=== PATIENT | male | born 1975 | race Caucasian/White ===

== ENCOUNTER 2022-11-09 07:15 | Emergency (ER) | payer MEDICAID ==
[2022-11-09 07:27] VITALS: BP 136/68
[2022-11-09] MEDS ORDERED: predniSONE 20 MG TABLET PO STA (07:46)
--- NOTE | 2022-11-09 07:49 | ED Physician Documentation ---
PD HPI SKIN - Stated complaint Stated Complaint: RASH/ITCHY HANDS - Chief complaint Chief Complaint: Allergic Rx - History obtained from History obtained from: Patient - History of Present Illness Timing - onset: How many weeks ago (1) Timing - duration: Weeks (1) Timing - details: Gradual onset, Still present, Waxing and waning Location: [place] Quality / character: Itchy, Raised Improved by: Benadryl, Oral steroids Associated symptoms: Headache (similar to always). 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 He has had an outbreak over the past week and he does not have any medications that he typically would use to treat this. He usually takes some prednisone for about 3 days to clear this up. He is also taking some hydroxyzine and he is out of this medication as well. The patient is moved to [facility] about 6 months ago and plans to stay. He has previously been attended to by a rack room worker who made the diagnosis clinically. The patient is unaware of any specific triggers. He did usually gets a headache with this and has his typical headache. Review of Systems Constitutional: denies: Fever Eyes: denies: Decreased vision Ears: denies: Ear pain Nose: denies: Congestion Throat: denies: Sore throat Cardiac: denies: Chest pain / pressure, Palpitations Respiratory: denies: Dyspnea, Cough GI: denies: Abdominal Pain, Nausea, Vomiting, Diarrhea : denies: Dysuria, Frequency Skin: reports: Rash Musculoskeletal: denies: Neck pain, Back pain, Extremity pain Neurologic: reports: Headache. denies: Generalized weakness, Focal weakness, Numbness, Head injury, LOC PD PAST MEDICAL HISTORY - Past Medical History Past Medical History: Yes Cardiovascular: None Respiratory: None Neuro: None Endocrine/Autoimmune: None GI: None : None HEENT: None Psych: Depression Musculoskeletal: Osteoarthritis Derm: Other - Past Surgical History Past Surgical History: Yes Ortho: Other - Present Medications Home Medications: Ambulatory Orders Medication Instructions Recorded Confirmed Bupropion HCl [Wellbutrin Xl] 300 mg PO DAILY 11/09/22 11/09/22 hydrOXYzine pamoate [Hydroxyzine 25 - 50 mg PO Q6HR PRN #30 cap 11/09/22 Pamoate] predniSONE [Deltasone] 40 mg PO DAILY #20 tablet 11/09/22 - Allergies Allergies/Adverse Reactions: Allergies Allergy/AdvReac Type Severity Reaction Status Date / Time doxycycline Allergy Unknown Verified 11/09/22 07:23 Penicillins Allergy Unknown Verified 11/09/22 07:23 promethazine Allergy Nausea Verified 11/09/22 07:23 - Social History Does the pt smoke?: Yes Smoking Status: Current every day smoker Does the pt drink ETOH?: Yes Does the pt have substance abuse?: Yes Substance Use and Type: Marijuana - Immunizations Immunizations are current?: Yes PD ED PE NORMAL - Vitals Vital signs reviewed: Yes (Hypertensive mild) - General General: Alert and oriented X 3, No acute distress, Well developed/nourished - HEENT HEENT: Atraumatic, PERRL, EOMI - Neck Neck: Supple, no meningeal sign, No bony TTP - Respiratory Respiratory: No respiratory distress - Derm Derm: Normal color, Warm and dry, Other (Urticarial rash over the abdomen forearms.) - Extremities Extremities: No deformity, No edema - Neuro Neuro: Alert and oriented X 3, plush cutter 2-12 intact, No motor deficit, No sensory deficit, Normal speech Eye Opening: Spontaneous Motor: Obeys Commands Verbal: Oriented GCS Score: 15 - Psych Psych: Normal mood, Normal affect Results - Vitals Vitals: Vital Signs - 24 hr 11/09/22 07:24 Temperature 37.1 C Heart Rate 83 Respiratory 18 Rate Blood Pressure 136/68 H O2 Saturation 99 Oxygen O2 Source Room air PD Medical Decision Making - ED course Complexity details: considered differential, d/w patient ED course: 46-year-old male presents to the emergency department with a medical problem he has had previously. He is having an exacerbation of urticarial vasculitis. He has had previous successful treatment with prednisone and hydroxyzine and is requesting same. I found no specifics on review of system and no specific work- up is indicated. I will [place] the patient [place] and provide treatment today. We will E scribe prednisone and hydroxyzine. Departure - Departure Disposition: Home, Self Care Clinical Impression: Urticarial vasculitis Condition: Stable Instructions: ED Urticaria Follow-Up: Gris Ybarra ARNP [Credentialed Staff Provider] - Prescriptions: hydrOXYzine pamoate [Hydroxyzine Pamoate] 25 - 50 mg PO Q6HR PRN #30 cap PRN Reason: hives predniSONE [Deltasone] 40 mg PO DAILY #20 tablet Comments: Mando, today it looks like you have another outbreak of your urticarial vasculitis. We are expecting this to behave as it usually has. I have E scribed some prednisone and hydroxyzine to the [facility] in [place]. My recommendation is that after this has cleared up if you have an outbreak again try to correlate this with something you have had to eat within the last 24 hours.
== END 2022-11-09 08:21 | disposition home or self-care (01) ==
LOC: ED 07:15
DX: L95.8 Other vasculitis limited to the skin (principal); F17.200 Nicotine dependence, unspecified, uncomplicated
CPT/HCPCS: 99282; 99283; J7512

== ENCOUNTER 2023-01-28 07:27 | Emergency (ER) | payer MEDICAID, OTHER ==
[2023-01-28 07:46] VITALS: BP 123/63
[2023-01-28] MEDS ORDERED: DEXAMETHASONE 10 MG/ML VIAL IM STA (08:10)
[2023-01-28] MEDS ORDERED: hydrOXYzine PAMOATE 25 MG CAPSULE PO STA (08:10)
--- NOTE | 2023-01-28 08:13 | ED Physician Documentation ---
History of Present Illness - Stated complaint Stated Complaint: RASH - Chief complaint Chief Complaint: General - History obtained from History obtained from: Patient - Additonal information Additional information: The patient comes to the emergency department chief complaint of urticaria. He has a longstanding history of episodic urticarial vasculitis and states that he gets an episode every several months. He was last seen here in October for this. He is still trying to get established with primary care of the [place] and does not have a regular doctor. He is mainly here for symptomatic treatment of his urticaria. He denies being exposed to anything he is known to be allergic to. The urticaria are on his torso exclusively though he does have some itching on his palms and his palms seem a little swollen. He denies any swelling of his oropharyngeal structures or his face. No itching in his throat. He states the symptoms are very much consistent with what he has had before. He states that normally after few days of prednisone and hydroxyzine, the symptoms completely resolve. No other complaints at this time. PD PAST MEDICAL HISTORY - Past Medical History Past Medical History: Yes Cardiovascular: None Respiratory: None Neuro: None Endocrine/Autoimmune: None GI: None : None HEENT: None Psych: Depression Musculoskeletal: Osteoarthritis Derm: Other Other Past Medical History: uticarial vasculitis - Past Surgical History Past Surgical History: Yes Ortho: Other - Present Medications Home Medications: Ambulatory Orders Medication Instructions Recorded Confirmed buPROPion HCL [Wellbutrin Xl] 300 mg PO DAILY 11/09/22 01/28/23 hydrOXYzine HCL [Hydroxyzine HCl] 25 - 50 mg PO Q6H PRN #30 tablet 01/28/23 predniSONE [Deltasone] 60 mg PO DAILY 5 Days #15 tablet 01/28/23 - Allergies Allergies/Adverse Reactions: Allergies Allergy/AdvReac Type Severity Reaction Status Date / Time doxycycline Allergy Unknown Verified 01/28/23 07:56 Penicillins Allergy Unknown Verified 01/28/23 07:56 promethazine Allergy Nausea Verified 01/28/23 07:56 - Social History Does the pt smoke?: Yes Smoking Status: Current every day smoker Does the pt drink ETOH?: Yes Does the pt have substance abuse?: Yes - Immunizations Immunizations are current?: Yes PD ED PE NORMAL - Vitals Vital signs reviewed: Yes - General General: Alert and oriented X 3, No acute distress, Well developed/nourished - HEENT HEENT: Atraumatic, PERRL, EOMI, Moist mucous membranes - Neck Neck: Supple, no meningeal sign - Respiratory Respiratory: No respiratory distress - Derm Derm: Warm and dry, Other (Moderate urticarial rash across the patient's abdomen.) - Extremities Extremities: No deformity - Neuro Neuro: Alert and oriented X 3 - Psych Psych: Normal mood, Normal affect Results - Vitals Vitals: Vital Signs - 24 hr 01/28/23 07:41 Temperature 36.6 C Heart Rate 62 Respiratory 16 Rate Blood Pressure 123/63 O2 Saturation 98 Oxygen O2 Source Room air PD Medical Decision Making - ED course Complexity details: considered differential, d/w patient ED course: The patient was given doses of Decadron and hydroxyzine in the emergency department and prescriptions were sent for the same to the pharmacy of the patient's choice. We have discussed the importance of getting established with primary care, as the patient was counseled to do the same thing last time he was here and 3 months later, has not made any progress in this regard. The patient states he is getting on state insurance now so that he can get established with outpatient care. We discussed the usual indications for return. Departure - Departure Disposition: 01 Home, Self Care Clinical Impression: Urticaria Condition: Stable Instructions: ED Urticaria Prescriptions: predniSONE [Deltasone] 60 mg PO DAILY 5 Days #15 tablet hydrOXYzine HCL [Hydroxyzine HCl] 25 - 50 mg PO Q6H PRN #30 tablet PRN Reason: Itching Comments: Your prescriptions have been electronically transmitted to the [facility] in [place]. It is very important that you get established with primary care so that you can have basic health care. Please follow-up as soon as you can to get established.
== END 2023-01-28 08:21 | disposition home or self-care (01) ==
LOC: ED 07:27
DX: L50.9 Urticaria, unspecified (principal); F17.200 Nicotine dependence, unspecified, uncomplicated
CPT/HCPCS: 96372; 99283; A9270

== ENCOUNTER 2023-06-05 16:30 | Emergency (ER) | payer MEDICAID ==
[2023-06-05 16:55] VITALS: BP 117/70; O2SAT 97
[2023-06-05] MEDS ORDERED: HYDROcod/ACET 5/325 Prepack 4 PO STA (16:55)
[2023-06-05] MEDS ORDERED: hydrOXYzine PAMOATE 25 MG CAPSULE PO STA (16:55)
[2023-06-05] MEDS ORDERED: predniSONE 20 MG TABLET PO STA (16:55)
--- NOTE | 2023-06-05 16:57 | ED Physician Documentation ---
History of Present Illness - Stated complaint Stated Complaint: BILAT FEET SWELLING - Chief complaint Chief Complaint: General - History obtained from History obtained from: Patient - Additonal information Additional information: 47-year-old gentleman with longstanding history of urticarial vasculitis. He gets flares now and again and when he does steroids are helpful. 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 No fevers or chills. PD PAST MEDICAL HISTORY - Past Medical History Cardiovascular: None Respiratory: None Neuro: None Endocrine/Autoimmune: None GI: None : None HEENT: None Psych: Depression Musculoskeletal: Osteoarthritis Derm: Other - Past Surgical History Past Surgical History: Yes Ortho: Other - Present Medications Home Medications: Ambulatory Orders Medication Instructions Recorded Confirmed buPROPion HCL [Wellbutrin Xl] 300 mg PO DAILY 11/09/22 01/28/23 hydrOXYzine HCL [Hydroxyzine HCl] 25 - 50 mg PO Q6H PRN #30 tablet 01/28/23 predniSONE [Deltasone] 60 mg PO DAILY 5 Days #15 tablet 01/28/23 HYDROcod/ACETAM 5/325 [[place] 5/325] 1 - 2 tab PO Q6H PRN #10 tablet 06/05/23 hydrOXYzine PAMOATE [Vistaril] 25 mg PO Q6H PRN #15 cap 06/05/23 predniSONE [Deltasone] 20 mg PO [id number] #21 tab 06/05/23 - Allergies Allergies/Adverse Reactions: Allergies Allergy/AdvReac Type Severity Reaction Status Date / Time doxycycline Allergy Unknown Verified 01/28/23 07:56 Penicillins Allergy Unknown Verified 01/28/23 07:56 promethazine Allergy Nausea Verified 01/28/23 07:56 - Social History Does the pt smoke?: Yes Smoking Status: Current every day smoker Does the pt drink ETOH?: Yes Does the pt have substance abuse?: Yes - Immunizations Immunizations are current?: Yes PD ED PE NORMAL - Vitals Vital signs reviewed: Yes - General General: Alert and oriented X 3, No acute distress - Derm Derm: Normal color, Warm and dry - Extremities Extremities: Other (Vasculitic/urticarial rash on both feet and ankles. No cellulitis. Painless range of motion of all joints of the foot and ankles.) - Neuro Neuro: Alert and oriented X 3, Normal speech Results - Vitals Vitals: Vital Signs - 24 hr 06/05/23 16:42 Temperature 36.7 C Heart Rate 84 Respiratory 18 Rate Blood Pressure 117/70 O2 Saturation 97 Oxygen O2 Source Room air Departure - Departure Disposition: 01 Home, Self Care Clinical Impression: Urticarial vasculitis Condition: Good Record reviewed to determine appropriate education?: Yes Prescriptions: predniSONE [Deltasone] 20 mg PO [id number] #21 tab HYDROcod/ACETAM 5/325 [[place] 5/325] 1 - 2 tab PO Q6H PRN #10 tablet PRN Reason: Pain hydrOXYzine PAMOATE [Vistaril] 25 mg PO Q6H PRN #15 cap PRN Reason: Itching Comments: I sent your prescriptions electronically to the [facility] in [place]. Return for new or worsening symptoms. Follow-up with the specialist as you are planning. I am prescribing a short course of narcotic pain medication for you. These are potentially dangerous and addictive medications that should be used carefully. These medications may constipate you. Take an [id number] stool softener (docusate) twice daily with plenty of water while taking these medications. If you go 24 hours without a bowel movement, take [id number] miralax, per package instructions. Do not drink or drive while taking these medications. If you received narcotic or sedating medications while in the emergency department, do not drive for 24 hours. Store this medication in a safe, secure place and out of reach of children. It is a violation of federal law to give or sell this medication to another person or to use in a manner other than prescribed. The ED will not refill narcotic prescriptions, including prescriptions lost or stolen. To dispose of unwanted medications: 1. [facility] provides a drop box for medication in pill form only (no liquids) 8:00 am to 4:30 p.m. Tuesday-Tuesday in the lobby of the [facility], [address] [place] [address]. Empty pills into ziplock bag before disposal. Call [phone] for information. 2.[employer] is a free service available to all [facility] residents. Go to [email or web address] Note that many narcotic pain relievers also contain Tylenol/acetaminophen. Please ensure that your total dose of acetaminophen from all sources does not exceed 3 g (3000 mg) per day.
--- OUTSIDE RECORDS SUMMARY | 2023-06-05 17:28 | EXTERNAL MEDICAL SUMMARY RPT | Continuity of Care Document ---
Author Name Unknown Address [address] [place] [address] Phone Organization [facility] Address [address] [place] [address] Phone Care Team Providers Care External Grinder Tool Name Role Phone Unavailable Unavailable Unavailable Rhonda Feldman Pa-C Unavailable Unavailable Allergies and Intolerances date description facility reaction severity Medications date description facility 2023-03-28 00:00 prednisone [facility] [place] 2023-03-29 00:00 prednisone [facility] [place] 2023-03-28 00:00 hydroxyzine hcl [facility] [place] 2023-03-29 00:00 hydroxyzine hcl [facility] [place] 2023-03-28 00:00 bupropion hcl [facility] [place] 2023-03-29 00:00 bupropion hcl [facility] [place] 2023-03-28 00:00 hydroxyzine hcl [facility] [place] 2023-03-29 00:00 hydroxyzine hcl [facility] [place] 2023-03-28 00:00 prednisone [facility] [place] 2023-03-29 00:00 prednisone [facility] [place] 2023-03-28 00:00 prednisone [facility] [place] 2023-03-29 00:00 prednisone [facility] [place] 2023-03-28 00:00 prednisone [facility] [place] 2023-03-29 00:00 prednisone [facility] [place] 2023-03-28 00:00 hydroxyzine hcl [facility] [place] 2023-03-29 00:00 hydroxyzine hcl [facility] [place] 2023-03-28 00:00 bupropion hcl [facility] [place] 2023-03-29 00:00 bupropion hcl [facility] [place] 2023-03-28 00:00 bupropion hcl [facility] [place] 2023-03-29 00:00 bupropion hcl [facility] [place] 2023-03-28 00:00 bupropion hcl [facility] [place] 2023-03-29 00:00 bupropion hcl [facility] [place] 2023-03-28 00:00 hydroxyzine hcl [facility] [place] 2023-03-29 00:00 hydroxyzine hcl [facility] [place] Problems date description facility 2023-03-28 00:00 Hypocomplementemic u rticarial vasculitis [facility] [place] 2023-03-28 00:00 Arteritis, unspecified [facility] [place] 2023-03-28 00:00 Generalized anxiety disorder [facility] [place] 2023-03-28 00:00 Other specified necr otizing vasculopathies [facility] [place] Procedures date description facility 2023-03-28 00:00 Visit Code Hold [facility] [place] Social History date description facility 2023-03-28 00:00 Current every day smoker [facility] [place] Vital Signs date measurement value units 2023-03-28 00:00 BMI 31.38 kg/m2 2023-03-28 00:00 BP_diastolic 65 mmHg 2023-03-28 00:00 BP_systolic 115 mmHg 2023-03-28 00:00 heart_rate 67 /min 2023-03-28 00:00 height_metric 185.42 cm 2023-03-28 00:00 height_standard 73 in 2023-03-28 00:00 respiration_rate 16 /min 2023-03-28 00:00 temperature_metric 36.11 C 2023-03-28 00:00 temperature_standard 97 F 2023-03-28 00:00 weight_metric 107.5 kg 2023-03-28 00:00 weight_standard 237 lb
== END 2023-06-05 17:29 | disposition home or self-care (01) ==
LOC: ED 16:30
DX: I77.6 Arteritis, unspecified (principal); F17.200 Nicotine dependence, unspecified, uncomplicated
CPT/HCPCS: 99282; 99283; A9270; J7512

== ENCOUNTER 2023-08-30 17:48 | Emergency (ER) | payer MEDICAID ==
[2023-08-30 18:19] VITALS: BP 134/70; O2SAT 97
--- NOTE | 2023-08-30 19:34 | ED Physician Documentation ---
History of Present Illness - Stated complaint Stated Complaint: HIVES - Chief complaint Chief Complaint: Allergic Rx - Additonal information Additional information: 47-year-old male presents emergency department for evaluation of generalized hives that began 2 days ago. He does have a history of recurrent hives. He also has a history of joint inflammation. He has previously been worked up for RA but was negative. His PCP has referred him to a grant officer but the patient has not yet completed the process of making the appointment. Patient states he has been too busy because of his job. Seen last for similar in mid June and received a prescription for Decadron, tizanidine and cetirizine which she found helpful. When this episode of hives began 2 days ago he had taken 1 leftover Decadron but it has not resolved the hives. He has tried Benadryl and cetirizine. Denies chest pain, shortness of air, tongue or lip swelling. Review of Systems Eyes: reports: Reviewed and negative Ears: reports: Reviewed and negative Cardiac: denies: Chest pain / pressure Respiratory: denies: Dyspnea Skin: reports: Rash PD PAST MEDICAL HISTORY - Past Medical History Past Medical History: No Cardiovascular: None Respiratory: None Neuro: None Endocrine/Autoimmune: None GI: None : None HEENT: None Psych: Depression Musculoskeletal: Osteoarthritis Derm: Other - Past Surgical History Past Surgical History: Yes Ortho: Other - Present Medications Home Medications: Ambulatory Orders Medication Instructions Recorded Confirmed buPROPion HCL [Wellbutrin Xl] 150 mg PO DAILY 11/09/22 08/30/23 hydrOXYzine PAMOATE [Vistaril] 25 mg PO Q6H PRN #15 cap 06/05/23 08/30/23 Cetirizine [ZyrTEC] 10 mg PO DAILY #30 tablet 07/05/23 08/30/23 Guanfacine HCl [Intuniv] 1 mg PO HS 07/05/23 08/30/23 Cetirizine [ZyrTEC] 10 mg PO DAILY #30 tablet 08/30/23 Lisdexamfetamine Dimesylate 10 mg PO DAILY 08/30/23 08/30/23 dexAMETHasone [Decadron] 4 mg PO DAILY 8 Days #8 tablet 08/30/23 tiZANidine [Zanaflex] 4 mg PO Q8H PRN #20 tablet 08/30/23 - Allergies Allergies/Adverse Reactions: Allergies Allergy/AdvReac Type Severity Reaction Status Date / Time doxycycline Allergy Unknown Verified 08/30/23 18:09 Penicillins Allergy Unknown Verified 08/30/23 18:09 promethazine Allergy Nausea Verified 08/30/23 18:09 - Social History Does the pt smoke?: No Smoking Status: Never smoker Does the pt drink ETOH?: Yes Does the pt have substance abuse?: Yes Substance Use and Type: Marijuana - Immunizations Immunizations are current?: Yes PD ED PE NORMAL - General General: Alert and oriented X 3, No acute distress - HEENT HEENT: Atraumatic - Derm Derm: Other (Raised red urticaria on his abdomen, torso and forearms. No purpura or petechiae.) Results - Vitals Vitals: Vital Signs - 24 hr 08/30/23 18:09 Temperature 37.3 C Heart Rate 82 Respiratory 18 Rate Blood Pressure 134/70 H O2 Saturation 97 Oxygen O2 Source Room air PD Medical Decision Making - ED course Complexity details: d/w patient ED course: 47-year-old male presents emergency department for recurrent hives that has been a long-term ongoing problem. Last seen for similar in June. The patient historically resolves with steroids. However he has failed to follow through with rheumatology which is likely what he needs in order to prevent or manage this in the long-term. I discussed with patient the chronic use of steroids which does put him at risk for adrenal insufficiency as well as immune compromise and higher risk for diabetes, pancreatitis, heart disease and strokes. Clinically the rash is consistent with hives. He has no evidence however to suggest anaphylaxis or angioedema. However given the prevalence of the hives and the nature of the complaint he will be started on 8-day course of Decadron 4 mg. He is requesting a refill of cetirizine and tizanidine which have also done. Usual emergent return precautions were discussed for worsening symptoms. Departure - Departure Disposition: 01 Home, Self Care Clinical Impression: Hives Condition: Stable Record reviewed to determine appropriate education?: Yes Prescriptions: dexAMETHasone [Decadron] 4 mg PO DAILY 8 Days #8 tablet tiZANidine [Zanaflex] 4 mg PO Q8H PRN #20 tablet PRN Reason: Spasms Cetirizine [ZyrTEC] 10 mg PO DAILY #30 tablet Comments: Karsten you were seen today for recurrence of your rash and hives. I cannot express to you enough how important it is that you formally follow-up with a grant officer. Chronic use of steroids can lead to conditions such as adrenal insufficiency, increase your risk for opportunistic infections as well as increase your risk for heart attack and stroke. Please follow through with the referral. I have sent a prescription for 8 days of Decadron to the [facility] in [place]. I have also written a limited amount of tizanidine and cetirizine. Continue to take as you previously were. Return immediately to the ER if you are having any new or worsening symptoms, tongue or lip swelling, difficulty breathing talking or swallowing.
[2023-08-30] MEDS: DEXAMETHASONE 10 MG/ML VIAL PO STA (19:36)
== END 2023-08-30 19:55 | disposition home or self-care (01) ==
LOC: ED 17:48
DX: L50.9 Urticaria, unspecified (principal)
CPT/HCPCS: 99282; 99283

== ENCOUNTER 2023-09-05 16:03 | Emergency (ER) | payer MEDICAID ==
[2023-09-05 16:25] VITALS: BP 141/78; O2SAT 98
--- NOTE | 2023-09-05 17:07 | ED Physician Documentation ---
PD HPI SKIN - Stated complaint Stated Complaint: RASH - Chief complaint Chief Complaint: Wound - History obtained from History obtained from: Patient - History of Present Illness Timing - onset: How many days ago (2) Timing - duration: Days (2) Timing - details: Gradual onset, Still present Location: Genitals Quality / character: Burning, Vesicular Associated symptoms: No: Fever, Myalgias, Joint pain, Headache, Facial swelling, Dyspnea, Abd pain, N/V/D, Urinary sx Contributing factors: Exposed to medication (had decadron last week for hives) Similar symptoms before: Diagnosis (herpes genetalis) Recently seen: Emergency Dept - Additional information Additional information: Mando Suresh is a 47-year-old male with a prior history of herpes genitalis who has had a recent dose of dexamethasone for hives and he has now developed an outbreak. There is nothing atypical about this outbreak it is on the right side of the shaft as usual. He has taken valacyclovir previously and he is requesting to give him this medication. Review of Systems Constitutional: denies: Fever Ears: denies: Ear pain Nose: denies: Congestion Throat: denies: Sore throat Respiratory: denies: Cough GI: denies: Vomiting, Diarrhea : denies: Dysuria, Frequency, Discharge Skin: reports: Rash (to the penis) PD PAST MEDICAL HISTORY - Past Medical History Past Medical History: Yes Cardiovascular: None Respiratory: None Neuro: None Endocrine/Autoimmune: None GI: None : None HEENT: None Psych: Depression Musculoskeletal: Osteoarthritis Derm: Other - Past Surgical History Past Surgical History: Yes Ortho: Other - Present Medications Home Medications: Ambulatory Orders Medication Instructions Recorded Confirmed buPROPion HCL [Wellbutrin Xl] 150 mg PO DAILY 11/09/22 08/30/23 hydrOXYzine PAMOATE [Vistaril] 25 mg PO Q6H PRN #15 cap 06/05/23 08/30/23 Cetirizine [ZyrTEC] 10 mg PO DAILY #30 tablet 07/05/23 08/30/23 Guanfacine HCl [Intuniv] 1 mg PO HS 07/05/23 08/30/23 Cetirizine [ZyrTEC] 10 mg PO DAILY #30 tablet 08/30/23 Lisdexamfetamine Dimesylate 10 mg PO DAILY 08/30/23 08/30/23 dexAMETHasone [Decadron] 4 mg PO DAILY 8 Days #8 tablet 08/30/23 tiZANidine [Zanaflex] 4 mg PO Q8H PRN #20 tablet 08/30/23 Valacyclovir HCl [Valtrex] 1,000 mg PO DAILY #5 tablet 09/05/23 - Allergies Allergies/Adverse Reactions: Allergies Allergy/AdvReac Type Severity Reaction Status Date / Time doxycycline Allergy Unknown Verified 09/05/23 16:25 Penicillins Allergy Unknown Verified 09/05/23 16:25 promethazine Allergy Nausea Verified 09/05/23 16:25 - Social History Does the pt smoke?: Yes Smoking Status: Current every day smoker Does the pt drink ETOH?: Yes Does the pt have substance abuse?: Yes - Immunizations Immunizations are current?: Yes PD ED PE NORMAL - Vitals Vital signs reviewed: Yes (hypertensive ) - General General: Alert and oriented X 3, No acute distress, Well developed/nourished - HEENT HEENT: Atraumatic, PERRL, EOMI - Respiratory Respiratory: No respiratory distress - Male Male : Deferred - Derm Derm: Normal color, Warm and dry, No rash - Extremities Extremities: No deformity, No edema - Neuro Neuro: Alert and oriented X 3, project economist 2-12 intact, No motor deficit, No sensory deficit, Normal speech Eye Opening: Spontaneous Motor: Obeys Commands Verbal: Oriented GCS Score: 15 - Psych Psych: Normal mood, Normal affect Results - Vitals Vitals: Vital Signs - 24 hr 09/05/23 16:22 Temperature 36.1 C L Heart Rate 84 Respiratory 20 Rate Blood Pressure 141/78 H O2 Saturation 98 Oxygen O2 Source Room air PD Medical Decision Making - ED course Complexity details: considered differential, d/w patient ED course: 47-year-old male with an outbreak of herpes genitalis is requesting valacyclovir. We will E scribed this to the [facility] in [place]. 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 The dosing of this has changed and you will only need to take this once per day for 5 days.
== END 2023-09-05 17:16 | disposition home or self-care (01) ==
LOC: SUPCPDRO 16:03 → ED 16:03
DX: B00.9 Herpesviral infection, unspecified (principal); F17.200 Nicotine dependence, unspecified, uncomplicated; Z79.899 Other long term (current) drug therapy
CPT/HCPCS: 99282; 99283

== ENCOUNTER 2023-10-25 23:02 | Emergency (ER) | payer MEDICAID ==
[2023-10-25 23:20] VITALS: BP 140/74; O2SAT 98
[2023-10-26] MEDS ORDERED: dexAMETHasone 4 MG TABLET PO STA (01:04)
[2023-10-26] MEDS ORDERED: CETIRIZINE 10 MG TABLET PO STA (01:04)
--- NOTE | 2023-10-26 01:07 | ED Physician Documentation ---
PD HPI SKIN - Stated complaint Stated Complaint: RASH ON HAND/BODY - Chief complaint Chief Complaint: Wound - History of Present Illness Timing - onset: How many days ago (2-3) Timing - duration: Days (2-3) Timing - details: Gradual onset, Still present Location: Bodywide Quality / character: Itchy, Raised. No: Vesicular Improved by: No: Steroid cream Associated symptoms: Myalgias. No: Fever, N/V/D Contributing factors: Other (has had similar episodes multiple times in lifetime. 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 Treated successfully with steroid burst many times.). No: Recent illness Similar symptoms before: Diagnosis (urticarial vasculitis, though possible allergies too.) Review of Systems Constitutional: denies: Fever, Chills Nose: denies: Rhinorrhea / runny nose, Congestion Throat: denies: Sore throat Respiratory: denies: Cough PD PAST MEDICAL HISTORY - Past Medical History Past Medical History: Yes Cardiovascular: None Respiratory: None Neuro: None Endocrine/Autoimmune: None GI: None : None HEENT: None Psych: Depression Musculoskeletal: Osteoarthritis Derm: Other - Past Surgical History Past Surgical History: Yes Ortho: Other - Present Medications Home Medications: Ambulatory Orders Medication Instructions Recorded Confirmed buPROPion HCL [Wellbutrin Xl] 150 mg PO DAILY 11/09/22 08/30/23 hydrOXYzine PAMOATE [Vistaril] 25 mg PO Q6H PRN #15 cap 06/05/23 08/30/23 Cetirizine [ZyrTEC] 10 mg PO DAILY #30 tablet 07/05/23 08/30/23 Guanfacine HCl [Intuniv] 1 mg PO HS 07/05/23 08/30/23 Cetirizine [ZyrTEC] 10 mg PO DAILY #30 tablet 08/30/23 Lisdexamfetamine Dimesylate 10 mg PO DAILY 08/30/23 08/30/23 dexAMETHasone [Decadron] 4 mg PO DAILY 8 Days #8 tablet 08/30/23 tiZANidine [Zanaflex] 4 mg PO Q8H PRN #20 tablet 08/30/23 Valacyclovir HCl [Valtrex] 1,000 mg PO DAILY #5 tablet 09/05/23 Doxepin [SINEquan] 25 mg PO QPM PRN #10 cap 10/26/23 dexAMETHasone [Decadron] 4 mg PO DAILY 10 Days #10 tablet 10/26/23 - Allergies Allergies/Adverse Reactions: Allergies Allergy/AdvReac Type Severity Reaction Status Date / Time doxycycline Allergy Unknown Verified 10/25/23 23:10 Penicillins Allergy Unknown Verified 10/25/23 23:10 promethazine Allergy Nausea Verified 10/25/23 23:10 - Social History Does the pt smoke?: Yes Smoking Status: Current every day smoker Does the pt drink ETOH?: Yes Does the pt have substance abuse?: Yes - Immunizations Immunizations are current?: Yes PD ED PE NORMAL - Vitals Vital signs reviewed: Yes - General General: Alert and oriented X 3, No acute distress, Well developed/nourished - HEENT HEENT: Pharynx benign - Neck Neck: Supple, no meningeal sign, No adenopathy - Cardiac Cardiac: RRR, No murmur - Respiratory Respiratory: Clear bilaterally - Derm Derm: Normal color, Warm and dry, Other (diffuse spotty patchyes of prutitic skin, variable sized but largest about 2 cm. most about 1 cm. ) - Neuro Neuro: Alert and oriented X 3, No motor deficit, Normal speech Results - Vitals Vitals: Oxygen O2 Source Room air PD Medical Decision Making - ED course Complexity details: considered differential (pt with recurrent pruritic urticarial rash, with prior derm Dx and has been improved consistently with steroids in past. Can do that. He said trouble sleeping due to itching and has already been trying antihistamines hydroxyzine and Benadryl. Can Rx Doxepin to use PRN itch/sleep. ), d/w patient Departure - Departure Disposition: 01 Home, Self Care Clinical Impression: Urticarial dermatitis Condition: Stable Record reviewed to determine appropriate education?: Yes Instructions: ED Urticaria Prescriptions: dexAMETHasone [Decadron] 4 mg PO DAILY 10 Days #10 tablet Doxepin [SINEquan] 25 mg PO QPM PRN #10 cap PRN Reason: Itching Comments: I wrote prescription for 10 days worth of the dexamethasone. Continue this until your symptoms are better and if it is less than that duration, then save the remainder for the next episode. Continue with antihistamines to help with the itching. Hydroxyzine is reasonable antihistamine to be using. Use it every 6 hours if needed. Though be some sedation to it. Less sedating would be cetirizine/Zyrtec that could be used every 6 hours if needed as well. Being less sedating and also has a as much of a anti-itch effect. In addition I wrote a prescription for doxepin which is strictly not an antihistamine but still has affinity for the histamine receptors so can help with itchiness in conjunction with the regular antihistamines. It is sedating and use for sleep so it think of it mostly at night to help your symptoms. Hopefully your symptoms will improve over the next few days with the steroids. Follow-up with your primary care area in referral for rheumatology as planned. I sent your prescriptions to the [facility] in [place]. Forms: PCP List Discharge Date/Time: 10/26/23 01:55
== END 2023-10-26 01:55 | disposition home or self-care (01) ==
LOC: ED 23:02
DX: L50.9 Urticaria, unspecified (principal); F17.200 Nicotine dependence, unspecified, uncomplicated
CPT/HCPCS: 99282; 99283; A9270; J8540

== ENCOUNTER 2023-11-22 18:30 | Emergency (ER) | payer MEDICAID ==
[2023-11-22 18:53] VITALS: BP 120/60; O2SAT 98
[2023-11-22] MEDS: valACYclovir 500 MG TABLET PO STA (20:43)
--- NOTE | 2023-11-23 12:46 | ED Physician Documentation ---
PD HPI MALE - Stated complaint Stated Complaint: RASH - Chief complaint Chief Complaint: General - History obtained from History obtained from: Patient - History of Present Illness Associated symptoms: No: Dysuria, Urinary frequency, Genital sore / lesion, Testiclar pain, Scrotal swelling - Additional information Additional information: HPI from patient. Patient says "decadron is causing a flare of my herpes" (per patient). 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 He says the decadron, as has done in the past, is causing a flare of his genital herpes. He was T+R from this ED approximately 2.5 weeks ago for same symptoms (pruritis and mild burning sensation on ventral aspect of penile shaft). He says these symptoms invariably lead, within 2-3 days, to lesions in the area which he has been told are herpes lesions. On recent, previous visit, he was provided rx for valacylcovir 1000 mg QD x 5 days. PD PAST MEDICAL HISTORY - Past Medical History Past Medical History: No Cardiovascular: None Respiratory: None Neuro: None Endocrine/Autoimmune: None GI: None : None HEENT: None Psych: Depression Musculoskeletal: Osteoarthritis Derm: Other - Past Surgical History Past Surgical History: Yes Ortho: Other - Present Medications Home Medications: Ambulatory Orders Medication Instructions Recorded Confirmed buPROPion HCL [Wellbutrin Xl] 150 mg PO DAILY 11/09/22 11/22/23 Doxepin [SINEquan] 25 mg PO QPM PRN #10 cap 10/26/23 11/22/23 Guanfacine HCl [Intuniv] 1 mg PO HS 11/22/23 11/22/23 Lisdexamfetamine Dimesylate 10 mg PO DAILY 11/22/23 11/22/23 dexAMETHasone [Decadron] 4 mg PO DAILY 11/22/23 11/22/23 valACYclovir [Valtrex] 1,000 mg PO BID #20 tablet 11/22/23 - Allergies Allergies/Adverse Reactions: Allergies Allergy/AdvReac Type Severity Reaction Status Date / Time doxycycline Allergy Unknown Verified 11/22/23 18:44 Penicillins Allergy Unknown Verified 11/22/23 18:44 promethazine Allergy Nausea Verified 11/22/23 18:44 - Social History Does the pt smoke?: No Smoking Status: Never smoker Does the pt drink ETOH?: Yes Does the pt have substance abuse?: Yes Substance Use and Type: Marijuana - Immunizations Immunizations are current?: Yes - POLST Patient has POLST: No PD ED PE NORMAL - Vitals Vital signs reviewed: Yes - General General: Alert and oriented X 3, No acute distress, Well developed/nourished - Abdomen Abdomen: Soft, Non tender PD ED PE EXPANDED - Male Male : No: Skin lesions, Discharge Results - Vitals Vitals: Oxygen O2 Source Room air PD Medical Decision Making - ED course Complexity details: considered differential, d/w patient ED course: No lesions noted on exam but patient says he is having symptoms (as per HPI) that consistently correlate with prodrome of appearance of herpetic lesions; he is requesting represcription and longer course of valacyclovir. I am providing 10-day course. I instructed him to seek follow up with an outpatient primary care provider who can provide long-term/PRN suppressive rx if appropriate Departure - Departure Disposition: 01 Home, Self Care Clinical Impression: Herpes genitalis in men Condition: Good Instructions: ED Herpes Simplex Virus Type 2 Prescriptions: valACYclovir [Valtrex] 1,000 mg PO BID #20 tablet Comments: You are given the first dose of valacyclovir in the emergency department, and I have submitted a prescription to the [facility] pharmacy in [place] for a 10-day course of this medication. If you are getting herpes flares reliably when you take steroids, I would recommend that you see your primary care provider to inquire about prescription for this or similar medication to be used as a suppressive therapy for future courses of steroids. Forms: PCP List Discharge Date/Time: 11/22/23 21:04
== END 2023-11-22 21:04 | disposition home or self-care (01) ==
LOC: ED 18:30
DX: A60.00 Herpesviral infection of urogenital system, unspecified (principal); Z79.899 Other long term (current) drug therapy
CPT/HCPCS: 99282; 99283; A9270

== ENCOUNTER 2023-12-09 01:44 | Emergency (ER) | payer MEDICAID ==
--- NOTE | 2023-12-09 01:59 | ED Physician Documentation ---
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 denies fever. patient has upcoming appointment with wrapper leaf inspector next week. PD PAST MEDICAL HISTORY - Past Medical History Cardiovascular: None Respiratory: None Neuro: None Endocrine/Autoimmune: None GI: None : None HEENT: None Psych: Depression Musculoskeletal: Osteoarthritis Derm: Other - Past Surgical History Past Surgical History: Yes Ortho: Other - Present Medications Home Medications: Ambulatory Orders Medication Instructions Recorded Confirmed buPROPion HCL [Wellbutrin Xl] 150 mg PO DAILY 11/09/22 11/22/23 Doxepin [SINEquan] 25 mg PO QPM PRN #10 cap 10/26/23 11/22/23 Guanfacine HCl [Intuniv] 1 mg PO HS 11/22/23 11/22/23 Lisdexamfetamine Dimesylate 10 mg PO DAILY 11/22/23 11/22/23 dexAMETHasone [Decadron] 4 mg PO DAILY 11/22/23 11/22/23 valACYclovir [Valtrex] 1,000 mg PO BID #20 tablet 11/22/23 dexAMETHasone [Decadron] 4 mg PO QDAC #7 tablet 12/09/23 - Allergies Allergies/Adverse Reactions: Allergies Allergy/AdvReac Type Severity Reaction Status Date / Time doxycycline Allergy Unknown Verified 11/22/23 18:44 Penicillins Allergy Unknown Verified 11/22/23 18:44 promethazine Allergy Nausea Verified 11/22/23 18:44 - Social History Does the pt smoke?: No Smoking Status: Never smoker Does the pt drink ETOH?: Yes Does the pt have substance abuse?: Yes - Immunizations Immunizations are current?: Yes - POLST Patient has POLST: No PD ED PE NORMAL - Vitals Vital signs reviewed: Yes - General General: Alert and oriented X 3, No acute distress, Well developed/nourished - HEENT HEENT: Atraumatic, PERRL, EOMI - Derm Derm: Normal color, Warm and dry, Other (nonblanching purple lesions to BL palms of hands and BL hips. ) Results - Vitals Vitals: Oxygen O2 Source Room air PD Medical Decision Making - ED course ED course: 48yM with pmh urticarial vasculitis p/w painful lesions to hands and hips. these have responded well to decadron in the past and he is requesting again. return precautions given. plan to f/u rheumatology this week. Departure - Departure Disposition: 01 Home, Self Care Clinical Impression: Vasculitis Condition: Stable Instructions: Dexamethasone tablets Prescriptions: dexAMETHasone [Decadron] 4 mg PO QDAC #7 tablet Comments: You were seen in the emergency department for vasculitis. Rx sent to [facility] electronically. Please follow-up with your wrapper leaf inspector and return to the emergency department if you have any new or worsening symptoms or other concerns.
[2023-12-09] MEDS: DEXAMETHASONE 10 MG/ML VIAL PO STA (02:05)
[2023-12-09] MEDS: KETOROLAC 30 MG/ML VIAL IM STA (02:05)
[2023-12-09] MEDS: CHERRY SYRUP 10 ML UDC PO ONE (02:05)
[2023-12-09 02:20] VITALS: BP 128/94; O2SAT 98
== END 2023-12-09 02:36 | disposition home or self-care (01) ==
LOC: ED 01:44
DX: I77.6 Arteritis, unspecified (principal)
CPT/HCPCS: 96372; 99283; 99284; A9270

== ENCOUNTER 2024-01-08 16:00 | Emergency (ER) | payer MEDICAID ==
--- NOTE | 2024-01-08 16:22 | ED Physician Documentation ---
History of Present Illness - Stated complaint Stated Complaint: BILAT FEET SWELLING - Chief complaint Chief Complaint: General - History obtained from History obtained from: Patient - History of Present Illness Timing: Yesterday Pain level max: 0 Pain level now: 0 - Additonal information Additional information: 48-year-old male presents to the emergency department stating that he has swelling to the bilateral feet. History of urticarial vasculitis. He states usually resolves with steroids. He has not yet seen rheumatology but does have an appointment. No fevers. No chills. No cough. No congestion. No other symptoms. Here requesting steroids. Review of Systems Constitutional: denies: Fever, Chills Throat: denies: Sore throat Cardiac: denies: Chest pain / pressure Respiratory: denies: Dyspnea, Cough GI: denies: Nausea, Vomiting, Diarrhea PD PAST MEDICAL HISTORY - Past Medical History Cardiovascular: None Respiratory: None Neuro: None Endocrine/Autoimmune: None GI: None : None HEENT: None Psych: Depression Musculoskeletal: Osteoarthritis Derm: Other - Past Surgical History Past Surgical History: Yes Ortho: Other - Present Medications Home Medications: Ambulatory Orders Medication Instructions Recorded Confirmed buPROPion HCL [Wellbutrin Xl] 150 mg PO DAILY 11/09/22 01/08/24 Doxepin [SINEquan] 25 mg PO QPM PRN #10 cap 10/26/23 01/08/24 Guanfacine HCl [Intuniv] 1 mg PO HS 11/22/23 01/08/24 Lisdexamfetamine Dimesylate 10 mg PO DAILY 11/22/23 01/08/24 dexAMETHasone [Decadron] 4 mg PO DAILY 11/22/23 01/08/24 valACYclovir [Valtrex] 1,000 mg PO BID #20 tablet 11/22/23 01/08/24 dexAMETHasone [Decadron] 4 mg PO QDAC #7 tablet 12/09/23 01/08/24 dexAMETHasone [Decadron] 4 mg PO DAILY #7 tablet 01/08/24 - Allergies Allergies/Adverse Reactions: Allergies Allergy/AdvReac Type Severity Reaction Status Date / Time doxycycline Allergy Unknown Verified 01/08/24 16:15 Penicillins Allergy Unknown Verified 01/08/24 16:15 promethazine Allergy Nausea Verified 01/08/24 16:15 - Social History Does the pt smoke?: No Smoking Status: Never smoker Does the pt drink ETOH?: Yes Does the pt have substance abuse?: Yes - Immunizations Immunizations are current?: Yes - POLST Patient has POLST: No PD ED PE NORMAL - Vitals Vital signs reviewed: Yes - General General: Alert and oriented X 3, No acute distress - HEENT HEENT: Moist mucous membranes - Derm Derm: Warm and dry - Extremities Extremities: Other ( Bilateral feet - Intermittent areas of erythema mixed with bluish discoloration. No significant swelling. Neurovascular intact.) - Neuro Neuro: Alert and oriented X 3 Results - Vitals Vitals: Vital Signs - 24 hr 01/08/24 01/08/24 16:08 16:31 Temperature 36.9 C Heart Rate 101 H 98 Respiratory 18 16 Rate Blood Pressure 128/82 H 126/78 O2 Saturation 96 99 Oxygen O2 Source Room air PD Medical Decision Making - ED course Complexity details: considered differential, d/w patient ED course: Patient with what appears to be his usual urticarial vasculitis. Usually resolves with steroids. We will place the patient back on steroids and have him follow-up with his doctor for further care. No indication for further testing at this time. Patient counseled regarding signs and symptoms for which I believe and urgent re-evaluation would be necessary. Patient with good understanding of and agreement to plan and is comfortable going home at this time This document was made in part using voice recognition software. While efforts are made to proofread this document, sound alike and grammatical errors may occur. Departure - Departure Disposition: 01 Home, Self Care Clinical Impression: Urticarial vasculitis Condition: Good Instructions: ED Dermatitis Non Specific Rash Follow-Up: CUATE REYNA [Primary Care Provider] - Within 1 week Prescriptions: dexAMETHasone [Decadron] 4 mg PO DAILY #7 tablet Comments: Your prescription was sent to [facility] in [place]. Please use this to areas as prescribed. Please follow-up with your doctor for further care. You can also discuss with your doctor having steroids around the home to use for when your condition flares. Please return if you worsen Forms: PCP List Discharge Date/Time: 01/08/24 16:31
[2024-01-08] MEDS: dexAMETHasone 4 MG TABLET PO STA (16:26)
[2024-01-08 16:36] VITALS: BP 126/78; O2SAT 99
== END 2024-01-08 16:31 | disposition home or self-care (01) ==
LOC: ED 16:00
DX: L50.9 Urticaria, unspecified (principal)
CPT/HCPCS: 99282; 99283; J8540

== ENCOUNTER 2024-02-15 20:29 | Emergency (ER) | payer MEDICAID ==
[2024-02-15 20:42] VITALS: BP 118/61; O2SAT 100
--- NOTE | 2024-02-15 21:09 | ED Physician Documentation ---
History of Present Illness - Stated complaint Stated Complaint: R THUMB SWELLING - Chief complaint Chief Complaint: Ext Problem - History obtained from History obtained from: Patient - Additonal information Additional information: The patient comes to the emergency department chief complaint of pain and redness of his right thumb around the nail and red streak going up from his thumb into his arm. The patient denies any fever or chills. He otherwise feels fine. He states the thumb throbs all night and that is today progressed, he began to notice the red streak. He states he is concerned because he looked on [employer] and he found that he could be in end-stage renal disease with the symptoms. PD PAST MEDICAL HISTORY - Past Medical History Past Medical History: Yes Cardiovascular: None Respiratory: None Neuro: None Endocrine/Autoimmune: None GI: None : None HEENT: None Psych: Depression Musculoskeletal: Osteoarthritis Derm: Other - Past Surgical History Past Surgical History: Yes Ortho: Other - Present Medications Home Medications: Ambulatory Orders Medication Instructions Recorded Confirmed buPROPion HCL [Wellbutrin Xl] 150 mg PO DAILY 11/09/22 02/06/24 Guanfacine HCl [Intuniv] 1 mg PO HS 11/22/23 02/06/24 Lisdexamfetamine Dimesylate 10 mg PO DAILY 11/22/23 02/06/24 valACYclovir [Valtrex] 1,000 mg PO BID #20 tablet 11/22/23 02/06/24 dexAMETHasone [Decadron] 4 mg PO DAILY #7 tablet 01/08/24 hydrOXYzine pamoate [Hydroxyzine 25 mg PO Q6HR PRN #12 cap 02/07/24 Pamoate] valACYclovir [Valtrex] 500 mg PO BID #6 tablet 02/07/24 Sulfamethox/Trimeth 800/160 1 each PO BID #14 tablet 02/15/24 [Bactrim Ds 800/160] cephALEXin [Keflex] 500 mg PO Q6H #28 cap 02/15/24 - Allergies Allergies/Adverse Reactions: Allergies Allergy/AdvReac Type Severity Reaction Status Date / Time doxycycline Allergy Unknown Verified 02/15/24 20:36 Penicillins Allergy Unknown Verified 02/15/24 20:36 promethazine Allergy Nausea Verified 02/15/24 20:36 - Social History Does the pt smoke?: No Smoking Status: Never smoker Does the pt drink ETOH?: Yes Does the pt have substance abuse?: Yes - Immunizations Immunizations are current?: Yes - POLST Patient has POLST: No PD ED PE NORMAL - Vitals Vital signs reviewed: Yes - General General: Alert and oriented X 3, No acute distress, Well developed/nourished - HEENT HEENT: Atraumatic, Moist mucous membranes - Neck Neck: Supple, no meningeal sign - Cardiac Cardiac: Strong equal pulses - Respiratory Respiratory: No respiratory distress - Derm Derm: Warm and dry, Other (Erythema noted with mild edema around the right thumbnail. No purulent drainage expressible. No fluctuance. Streak noted going along extensor surface of thumb and into right forearm. No flexor tendon tenderness. No flexor surface redness.) - Extremities Extremities: No deformity - Neuro Neuro: No motor deficit, No sensory deficit, Other (Alert, otherwise grossly intact.) - Psych Psych: Normal mood, Normal affect Results - Vitals Vitals: Vital Signs - 24 hr 02/15/24 20:32 Temperature 36.4 C L Heart Rate 92 Respiratory 16 Rate Blood Pressure 118/61 O2 Saturation 100 Oxygen O2 Source Room air PD Medical Decision Making - ED course Complexity details: considered differential, d/w patient ED course: I d/w pt that there is nothing in his history or exam to indicate renal failure, and I find his sx for now to be mild. The pt appears to have a cellulitis with localized lymphangitis, and I have started him on abx. We have discussed the importance of taking his entire course of antibiotics, as prescribed. We have discussed the usual indications for return. Departure - Departure Disposition: 01 Home, Self Care Clinical Impression: Cellulitis Qualifiers: Site of cellulitis: extremity Site of cellulitis of extremity: upper extremity Laterality: right Qualified Code(s): L03.113 - Cellulitis of right upper limb Condition: Stable Instructions: ED Infec Skin Cellulitis Prescriptions: Sulfamethox/Trimeth 800/160 [Bactrim Ds 800/160] 1 each PO BID #14 tablet cephALEXin [Keflex] 500 mg PO Q6H #28 cap Comments: You have an infection of your right thumb that is likely stemming from the separation of the tissues around your nail from the nail itself. This could allow bacteria to get in and the infection or inflammation can sometimes spread along a vessel or other structure. There is no evidence of sepsis, and infection that is gone throughout your body and at this point, your symptoms are fairly mild. This infection would be expected to be easily treatable with oral antibiotics. You have been given an antibiotic shot here in the emergency department as well as an oral dose and a prescription for your home antibiotics has been electronically transmitted to the [facility] pharmacy in [place]. Please be sure you pick these up first thing in the morning and begin taking your antibiotics then so that you do not miss any doses. As far as any concern over renal failure, this is not by any means a common or typical sign of kidney failure and furthermore, there are number of other symptoms that would be expected in the setting of kidney failure that are far more common than any changes to the fingers or nails. In short, the symptoms you are having do not bear any relation to the symptoms of kidney failure. If you do feel that your symptoms are worsening after a couple of days, despite the antibiotics, please have your thumb rechecked. Forms: PCP List, Activity restrictions Discharge Date/Time: 02/15/24 22:09
[2024-02-15] MEDS: LIDOCAINE 1% 2 ML VIAL SUBQ STA (21:59)
[2024-02-15] MEDS: IBUPROFEN 600 MG TABLET PO STA (21:59)
[2024-02-15] MEDS: SULFAMETH/TRIMETH DS 800/160 MG TABLET PO STA (21:59)
[2024-02-15] MEDS: cefTRIAXone 1 GM VIAL IM STA (22:00)
== END 2024-02-15 22:09 | disposition home or self-care (01) ==
LOC: ED 20:29
DX: L03.011 Cellulitis of right finger (principal); Z79.899 Other long term (current) drug therapy
CPT/HCPCS: 96372; 99283

== ENCOUNTER 2024-02-18 11:40 | Emergency (ER) | payer MEDICAID ==
--- NOTE | 2024-02-18 11:58 | ED Physician Documentation ---
History of Present Illness - Stated complaint Stated Complaint: RT FINGER PX - Chief complaint Chief Complaint: General - History obtained from History obtained from: Patient - Additonal information Additional information: He has a history of urticarial vasculitis. Saw my partner a few days ago for cellulitis of the right thumb and it is worse now. Clinically looks like a paronychia. Also has a boil on the left leg but he would like evaluated. He does have a history of MRSA. PD PAST MEDICAL HISTORY - Past Medical History Past Medical History: Yes Cardiovascular: None Respiratory: None Neuro: None Endocrine/Autoimmune: None GI: None : None HEENT: None Psych: Depression Musculoskeletal: Osteoarthritis Derm: Other - Past Surgical History Past Surgical History: Yes Ortho: Other - Present Medications Home Medications: Ambulatory Orders Medication Instructions Recorded Confirmed buPROPion HCL [Wellbutrin Xl] 150 mg PO DAILY 11/09/22 02/06/24 Guanfacine HCl [Intuniv] 1 mg PO HS 11/22/23 02/06/24 Lisdexamfetamine Dimesylate 10 mg PO DAILY 11/22/23 02/06/24 valACYclovir [Valtrex] 1,000 mg PO BID #20 tablet 11/22/23 02/06/24 dexAMETHasone [Decadron] 4 mg PO DAILY #7 tablet 01/08/24 hydrOXYzine pamoate [Hydroxyzine 25 mg PO Q6HR PRN #12 cap 02/07/24 Pamoate] valACYclovir [Valtrex] 500 mg PO BID #6 tablet 02/07/24 Sulfamethox/Trimeth 800/160 1 each PO BID #14 tablet 02/15/24 [Bactrim Ds 800/160] cephALEXin [Keflex] 500 mg PO Q6H #28 cap 02/15/24 Chlorhexidine Gluconate [Hibiclens] 10 ml TP DAILY #1 bot 02/18/24 HYDROcod/ACETAM 5/325 [[place] 5/325] 1 - 2 tab PO Q6H PRN #15 tablet 02/18/24 - Allergies Allergies/Adverse Reactions: Allergies Allergy/AdvReac Type Severity Reaction Status Date / Time doxycycline Allergy Unknown Verified 02/18/24 11:56 Penicillins Allergy Unknown Verified 02/18/24 11:56 promethazine Allergy Nausea Verified 02/18/24 11:56 - Social History Does the pt smoke?: No Smoking Status: Never smoker Does the pt drink ETOH?: Yes Does the pt have substance abuse?: Yes - Immunizations Immunizations are current?: Yes - POLST Patient has POLST: No PD ED PE NORMAL - Vitals Vital signs reviewed: Yes - General General: Alert and oriented X 3, No acute distress - Derm Derm: Other (There is a paronychia of the proximal part of the right thumb without significant cellulitis. There is a medium to large abscess on the medial left posterior thigh.) - Neuro Neuro: Alert and oriented X 3 Results - Vitals Vitals: Vital Signs - 24 hr 02/18/24 11:51 Temperature 36.6 C Heart Rate 74 Respiratory 20 Rate Blood Pressure 142/63 H O2 Saturation 100 Oxygen O2 Source Room air Procedures - Abscess I&D (location) Right thumb paronychia Preparation: Betadine, Lidocaine 1% (Digital block with buffered lidocaine with excellent anesthesia) Incision: Incised with scalpel, Purulent drainage Other: Pt tolerated well Left thigh Preparation: Betadine, Lidocaine 1% Incision: Incised with scalpel, Purulent drainage, Loculations broken, Culture obtained Other: Pt tolerated well, Dressing applied PD Medical Decision Making - ED course ED course: He presents with a right thumb paronychia that was and incised and drained. Also left thigh abscess, also incised and drained. Not big enough to need packing per se. He is already on Keflex and Bactrim which is appropriate pending culture. He does have a history of MRSA. Departure - Departure Disposition: 01 Home, Self Care Clinical Impression: Paronychia, Abscess Condition: Good Record reviewed to determine appropriate education?: Yes Instructions: ED Abscess IandD Prescriptions: Chlorhexidine Gluconate [Hibiclens] 10 ml TP DAILY #1 bot HYDROcod/ACETAM 5/325 [[place] 5/325] 1 - 2 tab PO Q6H PRN #15 tablet PRN Reason: Pain Comments: We are performing a wound culture, the results should be done in 48-72 hours. Continue the antibiotics (Keflex and Bactrim for now). If antibiotic change is necessary we will call you. Return if worse in the meantime, especially if you develop increased pain, fevers, cannot keep down the medication. Otherwise follow-up with your physician in approximately 2-3 days. We sent your prescriptions electronically to the [facility] in [place]. I am prescribing a short course of narcotic pain medication for you. These are potentially dangerous and addictive medications that should be used carefully. These medications may constipate you. Take an ofyw-thc-lqsxwdu stool softener (docusate) twice daily with plenty of water while taking these medications. If you go 24 hours without a bowel movement, take [id number] miralax, per package instructions. Do not drink or drive while taking these medications. If you received narcotic or sedating medications while in the emergency department, do not drive for 24 hours. Store this medication in a safe, secure place and out of reach of children. It is a violation of federal law to give or sell this medication to another person or to use in a manner other than prescribed. The ED will not refill narcotic prescriptions, including prescriptions lost or stolen. To dispose of unwanted medications: 1. [facility] provides a drop box for medication in pill form only (no liquids) 8:00 am to 4:30 p.m. Tuesday-Tuesday in the lobby of the [facility], [address] [place] [address]. Empty pills into ziplock bag before disposal. Call [phone] for information. 2.[facility] is a free service available to all [facility] residents. Go to [email or web address] Note that many narcotic pain relievers also contain Tylenol/acetaminophen. Please ensure that your total dose of acetaminophen from all sources does not exceed 3 g (3000 mg) per day. Forms: PCP List, Activity restrictions Discharge Date/Time: 02/18/24 12:36
[2024-02-18 12:11] VITALS: BP 142/63; O2SAT 100
[2024-02-18] MEDS: BUFFERED LIDOCAINE 10 ML SYRINGE SUBQ STA (12:16)
== END 2024-02-18 12:36 | disposition home or self-care (01) ==
LOC: ED 11:40
DX: L03.011 Cellulitis of right finger (principal); L02.416 Cutaneous abscess of left lower limb; Z86.14 Personal history of Methicillin resistant Staphylococcus aureus infection
CPT/HCPCS: 10060; 26010

== ENCOUNTER 2024-02-23 20:02 | Emergency (ER) | payer MEDICAID ==
[2024-02-23 20:17] VITALS: BP 113/73; O2SAT 100
--- NOTE | 2024-02-23 20:19 | ED Physician Documentation ---
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 PD PAST MEDICAL HISTORY - Past Medical History Past Medical History: Yes Cardiovascular: None Respiratory: None Neuro: None Endocrine/Autoimmune: None GI: None : None HEENT: None Psych: Depression Musculoskeletal: Osteoarthritis Derm: Other - Past Surgical History Past Surgical History: Yes Ortho: Other - Present Medications Home Medications: Ambulatory Orders Medication Instructions Recorded Confirmed buPROPion HCL [Wellbutrin Xl] 150 mg PO DAILY 11/09/22 02/06/24 Guanfacine HCl [Intuniv] 1 mg PO HS 11/22/23 02/06/24 Lisdexamfetamine Dimesylate 10 mg PO DAILY 11/22/23 02/06/24 valACYclovir [Valtrex] 1,000 mg PO BID #20 tablet 11/22/23 02/06/24 dexAMETHasone [Decadron] 4 mg PO DAILY #7 tablet 01/08/24 hydrOXYzine pamoate [Hydroxyzine 25 mg PO Q6HR PRN #12 cap 02/07/24 Pamoate] valACYclovir [Valtrex] 500 mg PO BID #6 tablet 02/07/24 Sulfamethox/Trimeth 800/160 1 each PO BID #14 tablet 02/15/24 [Bactrim Ds 800/160] cephALEXin [Keflex] 500 mg PO Q6H #28 cap 02/15/24 Chlorhexidine Gluconate [Hibiclens] 10 ml TP DAILY #1 bot 02/18/24 HYDROcod/ACETAM 5/325 [[place] 5/325] 1 - 2 tab PO Q6H PRN #15 tablet 02/18/24 predniSONE [Deltasone] 20 mg PO [id number] #39 tab 02/23/24 - Allergies Allergies/Adverse Reactions: Allergies Allergy/AdvReac Type Severity Reaction Status Date / Time doxycycline Allergy Unknown Verified 02/23/24 20:07 Penicillins Allergy Unknown Verified 02/23/24 20:07 promethazine Allergy Nausea Verified 02/23/24 20:07 - Social History Does the pt smoke?: No Smoking Status: Never smoker Does the pt drink ETOH?: Yes Does the pt have substance abuse?: Yes - Immunizations Immunizations are current?: Yes - POLST Patient has POLST: No PD ED PE NORMAL - Vitals Vital signs reviewed: Yes - General General: Alert and oriented X 3, No acute distress - Derm Derm: Other (He has a severe rash on the trunk and extremities. Seems to spare the face, palms and soles.) - Neuro Neuro: Alert and oriented X 3, Normal speech Results - Vitals Vitals: Vital Signs - 24 hr 02/23/24 20:07 Temperature 36.8 C Heart Rate 87 Respiratory 16 Rate Blood Pressure 113/73 O2 Saturation 100 Oxygen O2 Source Room air PD Medical Decision Making - ED course ED course: He says he has a flare of his urticarial vasculitis and would like a full 2 weeks of prednisone. Departure - Departure Disposition: 01 Home, Self Care Clinical Impression: Urticarial vasculitis Condition: Good Record reviewed to determine appropriate education?: Yes Instructions: ED Urticaria Prescriptions: predniSONE [Deltasone] 20 mg PO [id number] #39 tab Comments: follow-up with the anesthesia attending as you are planning. Return for new or worse maria del carmen symptoms.
[2024-02-23] MEDS: predniSONE 20 MG TABLET PO STA (20:30)
== END 2024-02-23 20:35 | disposition home or self-care (01) ==
LOC: ED 20:02
DX: L95.8 Other vasculitis limited to the skin (principal)
CPT/HCPCS: 99283; J7512

== ENCOUNTER 2024-03-12 19:56 | Emergency (ER) | payer MEDICAID ==
[2024-03-12 20:27] LABS: BASOPHILS # (AUTO) 0.1 10^3/uL (0.0-0.1); BASOPHILS % (AUTO) 0.9 %; EOSINOPHILS # (AUTO) 0.4 10^3/uL (0.0-0.7); EOSINOPHILS % (AUTO) 3.7 %; HCT - HEMATOCRIT 47.3 % (42.0-52.0); HGB - HEMOGLOBIN 15.1 g/dL (14.0-18.0); LYMPHOCYTES # (AUTO) 3.1 10^3/uL (1.5-3.5); LYMPHOCYTES % (AUTO) 27.4 %; MEAN CORPUSCULAR HEMOGLOBIN 29.4 pg (27.0-31.0); MEAN CORPUSCULAR HGB CONC 31.9 g/dL (32.0-36.0); MEAN CORPUSCULAR VOLUME 92.2 fL (80.0-94.0); MEAN PLATELET VOLUME 11.3 fL (7.4-11.4); MONOCYTES # (AUTO) 0.8 10^3/uL (0.0-1.0); MONOCYTES % (AUTO) 6.6 %; NEUTROPHILS # (AUTO) 6.9 10^3/uL (1.5-6.6); NEUTROPHILS % (AUTO) 61.1 %; PLT - PLATELET COUNT 172 10^3/uL (130-450); RED BLOOD COUNT 5.13 10^6/uL (4.70-6.10); RED CELL DISTRIBUTION WIDTH 12.2 % (12.0-15.0); WHITE BLOOD COUNT 11.4 x10^3/uL (4.8-10.8)
[2024-03-12 20:30] LABS: BILIRUBIN,URINE SMALL (NEGATIVE); CLARITY,URINE CLEAR (CLEAR); GLUCOSE, URINE (UA) NEGATIVE (NEGATIVE); KETONES,URINE (UA) TRACE mg/dL (NEGATIVE); LEUKOCYTE ESTERASE, URINE NEGATIVE (NEGATIVE); NITRITE,URINE NEGATIVE (NEGATIVE); OCCULT BLOOD,URINE SMALL (NEGATIVE); PROTEIN,URINE NEGATIVE (NEGATIVE); UROBILINOGEN,URINE 0.2 (NORMAL) E.U./dL (NORMAL)
[2024-03-12 20:45] LABS: ALBUMIN 4.3 g/dL (3.2-5.5); ALBUMIN/GLOBULIN RATIO 1.6 (1.0-2.2); BILIRUBIN,TOTAL 0.5 mg/dL (0.2-1.0); CALCIUM 9.9 mg/dL (8.5-10.3); CREATININE 1.3 mg/dL (0.6-1.3); POTASSIUM 4.2 mmol/L (3.5-4.5)
[2024-03-12 21:00] LABS: BACTERIA,URINE Rare /HPF (None Seen); RBC,URINE 0-5 /HPF (0-5); SQUAMOUS EPITHELIAL CELL,UR RARE Squamous (<= Few)
[2024-03-12] MEDS: KETOROLAC 60 MG/2 ML VIAL IM STA (23:33)
[2024-03-12] MEDS: HYDROmorphone 1 MG/ML CARPUJECT IM STA (23:33)
--- NOTE | 2024-03-13 00:10 | CT Report ---
PROCEDURE: Abdomen/Pelvis WO INDICATIONS: low back/abd pain with blood on UA TECHNIQUE: A CT scan of the abdomen and pelvis was performed without the use of intravenous contrast. Images we re recorded and evaluated at appropriate window settings. Reformats: coronal and sagittal. For radiat ion dose reduction, the following was used: automated exposure control, adjustment of mA and/or kV ac cording to patient size. COMPARISON: None. FINDINGS: Image quality: Diagnostic. Lower chest: Unremarkable. Liver: No contour-deforming mass. Gallbladder and biliary tree: Normal. Spleen: No splenomegaly. Pancreas: No pancreatic ductal dilation. Adrenals: No adrenal nodule. Kidneys and ureters: No hydronephrosis. No renal cystic lesion which requires follow up. No solid mas s. Stomach, bowel and peritoneum: No bowel distension. No pathologic free fluid. No bowel inflammation f ound. Lymph nodes: No central or retroperitoneal adenopathy. Vessels: No infrarenal aortic aneurysm. PELVIS Reproductive organs: Unremarkable. Bladder: No wall thickness, accounting for underdistention. Pelvic lymph nodes: No pelvic adenopathy by size criteria. Normal appendix found right lower quadrant . Bones: No aggressive osseous abnormality. Other: No significant ventral or inguinal hernia. IMPRESSION: No hydronephrosis or obstructing renal stone. Source of hematuria and pain is not seen. Reviewed by: Fam Chen MD on 03/13/2024 12:09 AM PDT Approved by: Fam Chen MD on 03/13/2024 12:09 AM PDT Station ID: [id number]
--- NOTE | 2024-03-13 00:54 | ED Physician Documentation ---
PD HPI ABD PAIN - Stated complaint Stated Complaint: ABD PX, - Chief complaint Chief Complaint: Abd Pain - History obtained from History obtained from: Patient - Treatment prior to arrival Treatment prior to arrival: The patient comes to the emergency department chief complaint of low back pain. He states that it started yesterday and has persisted. He has had a kidney stone previously and is concerned that this might be the case again. He denies fevers or chills. No nausea or vomiting. No loss of bowel or bladder control. No other complaints at this time. PD PAST MEDICAL HISTORY - Past Medical History Past Medical History: Yes Cardiovascular: None Respiratory: None Neuro: None Endocrine/Autoimmune: None GI: None : None HEENT: None Psych: Depression, ADD/ADHD Musculoskeletal: Osteoarthritis Derm: Other - Past Surgical History Past Surgical History: Yes Ortho: Other - Present Medications Home Medications: Ambulatory Orders Medication Instructions Recorded Confirmed buPROPion HCL [Wellbutrin Xl] 150 mg PO DAILY 11/09/22 02/06/24 Guanfacine HCl [Intuniv] 1 mg PO HS 11/22/23 02/06/24 Lisdexamfetamine Dimesylate 10 mg PO DAILY 11/22/23 02/06/24 valACYclovir [Valtrex] 1,000 mg PO BID #20 tablet 11/22/23 02/06/24 dexAMETHasone [Decadron] 4 mg PO DAILY #7 tablet 01/08/24 hydrOXYzine pamoate [Hydroxyzine 25 mg PO Q6HR PRN #12 cap 02/07/24 Pamoate] valACYclovir [Valtrex] 500 mg PO BID #6 tablet 02/07/24 Sulfamethox/Trimeth 800/160 1 each PO BID #14 tablet 02/15/24 [Bactrim Ds 800/160] cephALEXin [Keflex] 500 mg PO Q6H #28 cap 02/15/24 Chlorhexidine Gluconate [Hibiclens] 10 ml TP DAILY #1 bot 02/18/24 HYDROcod/ACETAM 5/325 [[place] 5/325] 1 - 2 tab PO Q6H PRN #15 tablet 02/18/24 predniSONE [Deltasone] 20 mg PO [id number] #39 tab 02/23/24 HYDROcod/ACETAM 5/325 [[place] 5/325] 1 - 2 tablet PO Q6H PRN #7 tablet 03/13/24 - Allergies Allergies/Adverse Reactions: Allergies Allergy/AdvReac Type Severity Reaction Status Date / Time doxycycline Allergy Unknown Verified 03/12/24 20:14 Penicillins Allergy Unknown Verified 03/12/24 20:14 promethazine Allergy Nausea Verified 03/12/24 20:14 - Social History Does the pt smoke?: No Smoking Status: Never smoker Does the pt drink ETOH?: Yes Does the pt have substance abuse?: Yes - Immunizations Immunizations are current?: Yes - POLST Patient has POLST: No PD ED PE NORMAL - Vitals Vital signs reviewed: Yes - General General: Alert and oriented X 3, No acute distress, Well developed/nourished - HEENT HEENT: Atraumatic, EOMI, Moist mucous membranes - Neck Neck: Supple, no meningeal sign - Cardiac Cardiac: RRR, No murmur - Respiratory Respiratory: No respiratory distress, Clear bilaterally - Abdomen Abdomen: Soft, Non tender, Non distended - Back Back: No CVA TTP, No spinal TTP, Other (Mild tenderness across lumbar paraspinal musculature and laterally on both sides.) - Derm Derm: Normal color, Warm and dry, No rash - Extremities Extremities: No deformity, No edema - Neuro Neuro: No motor deficit, No sensory deficit, Other (Grossly intact.) - Psych Psych: Normal mood, Normal affect Results - Vitals Vitals: Oxygen O2 Source Room air - Labs Labs: Laboratory Tests 03/12/24 03/12/24 03/12/24 20:23 20:24 20:24 WBC 11.4 H RBC 5.13 Hgb 15.1 Hct 47.3 MCV 92.2 MCH 29.4 MCHC 31.9 L RDW 12.2 Plt Count 172 MPV 11.3 Neut # (Auto) 6.9 H Lymph # (Auto) 3.1 Starr # (Auto) 0.8 Eos # (Auto) 0.4 Baso # (Auto) 0.1 Absolute Nucleated RBC 0.00 Nucleated RBC % 0.0 Sodium 136 Potassium 4.2 Chloride 103 Carbon Dioxide 27 Anion Gap 6.0 BUN 22 H Creatinine 1.3 Estimated GFR (MDRD) 59 L Glucose 112 H Calcium 9.9 Total Bilirubin 0.5 AST 15 ALT 26 Alkaline Phosphatase 40 L Total Protein 7.0 Albumin 4.3 Globulin 2.7 Albumin/Globulin Ratio 1.6 Lipase 34 Urine Color YELLOW Urine Clarity CLEAR Urine pH 6.0 Ur Specific [place] >=1.030 H Urine Protein NEGATIVE Urine Glucose (UA) NEGATIVE Urine Ketones TRACE Urine Occult Blood SMALL H Urine Nitrite NEGATIVE Urine Bilirubin SMALL H Urine Urobilinogen 0.2 (NORMAL) Ur Leukocyte Esterase NEGATIVE Urine RBC 0-5 Urine WBC 4-5 Ur Squamous Epith Cells RARE Squamous Urine Bacteria Rare Urine Culture Comments NOT INDICATED - Rads (name of study) CT abdomen pelvis no contrast Relevant Findings:: Final report received, See rad report (Negative) PD Medical Decision Making - ED course Complexity details: reviewed results, re-evaluated patient, considered differential, d/w patient ED course: The patient was treated symptomatically in the emergency department and worked up with labs, which were unremarkable. Urinalysis and noncontrast CT were also unremarkable. I discussed with the patient that I am not sure what is causing his symptoms, but that this may be more of a musculoskeletal issue. We have discussed the need for follow-up and the usual indications for return, should the symptoms continue. Departure - Departure Disposition: 01 Home, Self Care Clinical Impression: Back pain Qualifiers: Back pain location: low back pain Chronicity: acute Back pain laterality: bilateral Sciatica presence: without sciatica Qualified Code(s): M54.50 - Low back pain, unspecified Condition: Stable Instructions: ED Neck Back Pain General Prescriptions: HYDROcod/ACETAM 5/325 [[place] 5/325] 1 - 2 tablet PO Q6H PRN #7 tablet PRN Reason: Pain Comments: Your labs, urinalysis, and CT scan all look good. 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 It is also possible that you have a touch of a viral illness that is causing some irritation in your bowels. What ever the case, no serious cause of your pain has been found and you will need to follow-up with your primary doctor as needed. A prescription for a small course of pain medication has been electronically transmitted to the [facility] in [place]. Please pick this up tomorrow and take as needed. Forms: PCP List Discharge Date/Time: 03/13/24 01:00
[2024-03-13 01:10] VITALS: BP 100/75; O2SAT 98
== END 2024-03-13 01:00 | disposition home or self-care (01) ==
LOC: ED 19:56
DX: M54.50 Low back pain, unspecified (principal); Z79.899 Other long term (current) drug therapy; R14.0 Abdominal distension (gaseous)
CPT/HCPCS: 36415; 51798; 74019; 74176; 80053; 81001; 83690; 85025; 96372; 99284; J1170; 87086

== ENCOUNTER 2024-03-13 08:00 | Outpatient (CLI) | payer MEDICAID ==
--- NOTE | 2024-03-13 15:44 | XRAY Report ---
PROCEDURE: Abdomen 2 V INDICATIONS: ADBOMINAL BLOATING TECHNIQUE: 2 views of the abdomen were acquired. COMPARISON: None. FINDINGS: Surgical changes and devices: None. Bowel: No pneumoperitoneum. The bowel gas pattern is normal. Stool load within normal limits. Soft tissues: No masses; visualized solid organ contours appear normal in size. No suspicious abdom inal calcifications. Bones: No suspicious bony abnormalities. IMPRESSION: No acute abdominal pathology. Reviewed by: Christoph Ro MD on 03/13/2024 3:43 PM PDT Approved by: Christoph Ro MD on 03/13/2024 3:43 PM PDT Station ID: [id number]
== END 2024-03-13 23:59 | disposition home or self-care (01) ==
LOC: DI.S 08:00
PROVIDERS: ATTEND Physician Assistant Medical
DX: R14.0 Abdominal distension (gaseous) (principal)

== ENCOUNTER 2024-05-02 22:04 | Emergency (ER) | payer MEDICAID ==
--- NOTE | 2024-05-02 22:19 | ED Physician Documentation ---
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 He recently saw a electrical prospecting engineer but there is no specific change in therapy and he does have to go back for another visit. Current flare started a few days ago. Mostly on the buttocks. PD PAST MEDICAL HISTORY - Past Medical History Past Medical History: Yes Cardiovascular: None Respiratory: None Neuro: None Endocrine/Autoimmune: None GI: None : None HEENT: None Psych: Depression, ADD/ADHD Musculoskeletal: Osteoarthritis Derm: Other - Past Surgical History Past Surgical History: Yes Ortho: Other - Present Medications Home Medications: Ambulatory Orders Medication Instructions Recorded Confirmed buPROPion HCL [Wellbutrin Xl] 150 mg PO DAILY 11/09/22 02/06/24 Guanfacine HCl [Intuniv] 1 mg PO HS 11/22/23 02/06/24 Lisdexamfetamine Dimesylate 10 mg PO DAILY 11/22/23 02/06/24 valACYclovir [Valtrex] 1,000 mg PO BID #20 tablet 11/22/23 02/06/24 dexAMETHasone [Decadron] 4 mg PO DAILY #7 tablet 01/08/24 hydrOXYzine pamoate [Hydroxyzine 25 mg PO Q6HR PRN #12 cap 02/07/24 Pamoate] valACYclovir [Valtrex] 500 mg PO BID #6 tablet 02/07/24 Sulfamethox/Trimeth 800/160 1 each PO BID #14 tablet 02/15/24 [Bactrim Ds 800/160] cephALEXin [Keflex] 500 mg PO Q6H #28 cap 02/15/24 Chlorhexidine Gluconate [Hibiclens] 10 ml TP DAILY #1 bot 02/18/24 HYDROcod/ACETAM 5/325 [Hymera 5/325] 1 - 2 tab PO Q6H PRN #15 tablet 02/18/24 predniSONE [Deltasone] 20 mg PO [id number] #[id number] tab 02/23/24 HYDROcod/ACETAM 5/325 [Hymera 5/325] 1 - 2 tablet PO Q6H PRN #7 tablet 03/13/24 dexAMETHasone [Decadron] 4 mg PO BIDWM #14 tablet 05/02/24 hydrOXYzine PAMOATE [Vistaril] 25 mg PO Q6H PRN #20 cap 05/02/24 - Allergies Allergies/Adverse Reactions: Allergies Allergy/AdvReac Type Severity Reaction Status Date / Time doxycycline Allergy Unknown Verified 05/02/24 22:09 Penicillins Allergy Unknown Verified 05/02/24 22:09 promethazine Allergy Nausea Verified 05/02/24 22:09 - Social History Does the pt smoke?: No Smoking Status: Never smoker Does the pt drink ETOH?: Yes Does the pt have substance abuse?: Yes - Immunizations Immunizations are current?: Yes - POLST Patient has POLST: No PD ED PE NORMAL - Vitals Vital signs reviewed: Yes - General General: Alert and oriented X 3, No acute distress - Derm Derm: Other (There is deep red splotches on the buttocks) Results - Vitals Vitals: Vital Signs - 24 hr 05/02/24 22:09 Temperature 36.8 C Heart Rate 76 Respiratory 16 Rate Blood Pressure 122/66 O2 Saturation 99 Oxygen O2 Source Room air Departure - Departure Disposition: 01 Home, Self Care Clinical Impression: Urticarial vasculitis Condition: Good Record reviewed to determine appropriate education?: Yes Instructions: ED Urticaria Prescriptions: dexAMETHasone [Decadron] 4 mg PO BIDWM #14 tablet hydrOXYzine PAMOATE [Vistaril] 25 mg PO Q6H PRN #20 cap PRN Reason: Itching Comments: I sent your prescriptions electronically to the [facility] in [employer]. As discussed it would be ideal if the electrical prospecting engineer can come up with a steroid sparing regimen as the long-term side effects of the steroids will start to catch up with you soon. Follow-up with them of course. Return for new or worsening symptoms. Do not drink or drive while taking hydroxyzine.
[2024-05-02 22:21] VITALS: BP 122/66; O2SAT 99
[2024-05-02] MEDS: dexAMETHasone 4 MG TABLET PO STA (22:30)
== END 2024-05-02 22:34 | disposition home or self-care (01) ==
LOC: ED 22:04
DX: L95.8 Other vasculitis limited to the skin (principal)
CPT/HCPCS: 99283; J8540

== ENCOUNTER 2024-05-17 21:06 | Emergency (ER) | payer MEDICAID ==
[2024-05-17 21:25] VITALS: BP 138/67; O2SAT 100
--- NOTE | 2024-05-17 21:40 | ED Physician Documentation ---
PD HPI WOUND RECHECK - Stated complaint Stated Complaint: HIVES - Chief complaint Chief Complaint: Wound - Histroy obtained from History obtained from: Patient - Additional information Additional information: He has a history of urticarial vasculitis undergoing workup with a vehicle assembler but comes to the emergency department fairly often requesting steroids and he has a flare of this and request steroids again. In addition he also has a abscess or cystic lesion on the right upper thigh without fevers. PD PAST MEDICAL HISTORY - Past Medical History Past Medical History: Yes Cardiovascular: None Respiratory: None Neuro: None Endocrine/Autoimmune: None GI: None : None HEENT: None Psych: Depression, ADD/ADHD Musculoskeletal: Osteoarthritis Derm: Other - Past Surgical History Past Surgical History: Yes Ortho: Other - Present Medications Home Medications: Ambulatory Orders Medication Instructions Recorded Confirmed buPROPion HCL [Wellbutrin Xl] 150 mg PO DAILY 11/09/22 02/06/24 Guanfacine HCl [Intuniv] 1 mg PO HS 11/22/23 02/06/24 Lisdexamfetamine Dimesylate 10 mg PO DAILY 11/22/23 02/06/24 valACYclovir [Valtrex] 1,000 mg PO BID #20 tablet 11/22/23 02/06/24 dexAMETHasone [Decadron] 4 mg PO DAILY #7 tablet 01/08/24 hydrOXYzine pamoate [Hydroxyzine 25 mg PO Q6HR PRN #12 cap 02/07/24 Pamoate] valACYclovir [Valtrex] 500 mg PO BID #6 tablet 02/07/24 Sulfamethox/Trimeth 800/160 1 each PO BID #14 tablet 02/15/24 [Bactrim Ds 800/160] cephALEXin [Keflex] 500 mg PO Q6H #28 cap 02/15/24 Chlorhexidine Gluconate [Hibiclens] 10 ml TP DAILY #1 bot 02/18/24 HYDROcod/ACETAM 5/325 [Bertram 5/325] 1 - 2 tab PO Q6H PRN #15 tablet 02/18/24 predniSONE [Deltasone] 20 mg PO [id number] #39 tab 02/23/24 HYDROcod/ACETAM 5/325 [Bertram 5/325] 1 - 2 tablet PO Q6H PRN #7 tablet 03/13/24 dexAMETHasone [Decadron] 4 mg PO BIDWM #14 tablet 05/02/24 hydrOXYzine PAMOATE [Vistaril] 25 mg PO Q6H PRN #20 cap 05/02/24 HYDROcod/ACETAM 5/325 [Bertram 5/325] 1 - 2 tab PO Q6H PRN #10 tablet 05/17/24 Sulfamethox/Trimeth 800/160 1 each PO BID #14 tablet 05/17/24 [Bactrim Ds 800/160] dexAMETHasone [Decadron] 4 mg PO BIDWM #30 tablet 05/17/24 - Allergies Allergies/Adverse Reactions: Allergies Allergy/AdvReac Type Severity Reaction Status Date / Time doxycycline Allergy Unknown Verified 05/17/24 21:13 Penicillins Allergy Unknown Verified 05/17/24 21:13 promethazine Allergy Nausea Verified 05/17/24 21:13 - Social History Does the pt smoke?: No Smoking Status: Never smoker Does the pt drink ETOH?: Yes Does the pt have substance abuse?: Yes - Immunizations Immunizations are current?: Yes - POLST Patient has POLST: No PD ED PE NORMAL - Vitals Vital signs reviewed: Yes - General General: Alert and oriented X 3, No acute distress - Derm Derm: Other (Small pointed cyst abscess right upper inner thigh without cellulitis.) - Neuro Neuro: Alert and oriented X 3 Results - Vitals Vitals: Vital Signs - 24 hr 05/17/24 21:13 Temperature 36.8 C Heart Rate 80 Respiratory 16 Rate Blood Pressure 138/67 H O2 Saturation 100 Oxygen O2 Source Room air Procedures - Abscess I&D (location) R thigh Preparation: Lidocaine 1% Incision: Needle aspiration, Purulent drainage, Culture obtained Other: Pt tolerated well, Dressing applied, Antibiotic prescribed Departure - Departure Disposition: 01 Home, Self Care Clinical Impression: Urticarial vasculitis, Abscess Condition: Good Record reviewed to determine appropriate education?: Yes Instructions: ED Abscess IandD Prescriptions: Sulfamethox/Trimeth 800/160 [Bactrim Ds 800/160] 1 each PO BID #14 tablet dexAMETHasone [Decadron] 4 mg PO BIDWM #30 tablet HYDROcod/ACETAM 5/325 [Bertram 5/325] 1 - 2 tab PO Q6H PRN #10 tablet PRN Reason: Pain Comments: I sent your prescriptions electronically to the [facility] in [place]. Continue your best efforts to follow-up with the vehicle assembler, as previously discussed, continue really giving you steroids will give you potentially disabling or life-threatening long-term side effects so dermatology and rheumatology follow-up is imperative. We are performing a wound culture, the results should be done in 48-72 hours. If antibiotic change is necessary we will call you. Return if worse in the meantime, especially if you develop increased pain, fevers, cannot keep down the medication. Otherwise follow-up with your physician in approximately 2-3 days.
[2024-05-17] MEDS: dexAMETHasone 4 MG TABLET PO STA (21:53)
[2024-05-17] MEDS: SULFAMETH/TRIMETH DS 800/160 MG TABLET PO STA (21:53)
[2024-05-17] MEDS: HYDROcod/ACET 5/325 Prepack 4 PO STA (21:53)
== END 2024-05-17 22:08 | disposition home or self-care (01) ==
LOC: ED 21:06
DX: L02.415 Cutaneous abscess of right lower limb (principal); I77.6 Arteritis, unspecified; Z79.899 Other long term (current) drug therapy
CPT/HCPCS: 10060; 99283; A9270; J8540